=== PATIENT | female | born 1960 | race Caucasian/White ===

== ENCOUNTER 2016-05-08 11:04 | Emergency (ER) | payer MEDICAID ==
[~2016-05-08] VITALS: Ht 162.6 cm; Wt 79.0 kg
[~2016-05-08 11:04] MED LIST: ULTR50TA PO
[2016-05-08 11:39] VITALS: PULSE 77; RESP 16; TEMP 98.1; O2SAT 99
[2016-05-08] MEDS ORDERED: VIST50CA PO (12:07)
--- NOTE | 2016-05-08 12:07 | PD ---
HPI . Lesion in her scalp Chief Complaint: Skin Problem Time Seen by Provider: 11:59 Travel History International Travel<30 days: No Contact w/Intl Traveler<30days: No Traveled to known affect area: No History of Present Illness HPI Patient presents complaining with a lesion on her scalp which has been there since 1995. She has been followed by automotive parts specialist for same. She states that the automotive parts specialist most recently prescribed medication that caused over $300. She was unable to get it filled. She states that the automotive parts specialist is interested in doing a biopsy. It is unclear to me exactly what brought her to the emergency department for this problem today. PFSH Past Medical History Anemia: Yes (BORDERLINE ) Autoimmune Disease: Yes (FIBROMYALGIA, BULEMIA 1992, TMJ ) Heart Rhythm Problems: Yes (IRREGULARITY) High Cholesterol: Yes Diabetes: No Diminished Hearing: No Gastrointestinal Disorders: Yes (DIGESTIVE PROBLEMS-CELIAC VS DIVERTICULITIS?) Musculoskeletal: Yes ( FASCIITIS BOTH FEET;SCIATICA, " back problmes ") Integumentary: Yes (SORES ON SCALP) Immunizations Current: No Migraines: Yes Menopausal: Yes : 0 Para: 1 : 1 Past Surgical History Abdominal Surgery: Yes (ABD LIPOSUCTION 2000) Oral Surgery: Yes (ORAL SURG DUE TO DENTAL ABSCESSES X 3-4 TIMES.) Other Surgery: Yes (LIPOSUCTION ./SINUS SURG.2012) Social History Alcohol Use: No Tobacco Use: No (Q"QUIT YEARS AGO") Substance Use: No Allergies-Medications (Allergen,Severity, Reaction): Coded Allergies: No Known Allergies (Verified , 05/08/16) Reported Meds & Prescriptions Reported Meds & Active Scripts Active Ultram (Tramadol HCl) 50 Mg Tab 50 Mg PO Q4H PRN Review of Systems Except as stated in HPI: all other systems reviewed are Neg Skin: Positive Lesions Physical Exam Narrative GENERAL: Awake and alert and in no acute distress. SKIN: Warm and dry. I cannot appreciate any lesions in her scalp. There is no redness or warmth. There is no induration. There is no rash. CARDIOVASCULAR: Regular rate and rhythm. RESPIRATORY: No accessory muscle use. MUSCULOSKELETAL: No obvious deformities. No edema. NEUROLOGICAL: Awake and alert. No obvious cranial nerve deficits. Motor grossly within normal limits. Normal speech. PSYCHIATRIC: Appropriate mood and affect; insight and judgment normal. Data Data Last Documented VS Vital Signs Date Time Temp Pulse Resp B/P Pulse Ox O2 Delivery O2 Flow Rate FiO2 05/08/16 11:39 98.1 77 16 99 MDM Medical Decision Making Medical Screen Exam Complete: Yes Emergency Medical Condition: Yes Differential Diagnosis The differential diagnosis of the skin rash includes but is not limited to allergic urticaria, scabies, insect bites, contact dermatitis Narrative Course Patient presents for evaluation of a skin problem which she has had for over 20 years. Her exam is benign. Diagnosis Primary Impression: Skin lesion Additional Instructions: Follow-up with the automotive parts specialist Med/Other Pt SpecificInfo: Prescription(s) given Scripts Hydroxyzine Pamoate (Vistaril)50 Mg Cap50 Mg PO QID PRN (skin discomfort) #30 CAP Ref 0 Prov:Puja Do MD 05/08/16 Disposition: 01 DISCHARGE HOME Condition: Stable Puja Do MD May 08, 2016 12:07
== END 2016-05-08 12:19 | disposition home or self-care (01) ==
LOC: PHEFT 11:04
DX: L98.9 Disorder of the skin and subcutaneous tissue, unspecified (principal)
CPT/HCPCS: 99283

== ENCOUNTER 2016-08-25 17:13 | Emergency (ER) | payer MEDICAID ==
[~2016-08-25] VITALS: Ht 162.6 cm; Wt 81.0 kg
[~2016-08-25 17:13] MED LIST changes: +VIST50CA PO
[2016-08-25 17:18] VITALS: BP 133/76; PULSE 97; RESP 16; TEMP 97.9; O2SAT 97
--- NOTE | 2016-08-25 18:14 | PD ---
HPI Chief Complaint: Musculoskeletal Complaint Time Seen by Provider: 17:50 Travel History International Travel<30 days: No Contact w/Intl Traveler<30days: No Traveled to known affect area: No History of Present Illness HPI 56-year-old female presents to the emergency room for evaluation of chronic right upper arm pain. Patient has had arm pain for 5 years but states it occasionally flares. It started flaring this morning. Condition is in the process of getting diagnosed with a blood disorder. She had an appointment with her special agent oncologist 2 days ago and a follow-up appointment with her primary care physician yesterday. The heme/onc ordered a PET scan for next month. Her primary care physician wrote her a prescription for Medrol Dosepak which she has yet to pickler helper. Patient states her pain can become severely limiting her ability to perform daily activities. Worse with range of motion. She has been taking Tylenol and ibuprofen without significant relief in symptoms. She denies paresthesias. When asked what brings her into the emergency room today for this chronic condition, patient states her mother needed to be seen for another complaint so she decided to have her arm evaluated. When asked what it is that we can do for her, patient requested an Jaylan wrap. PFSH Past Medical History Anemia: Yes (BORDERLINE ) Autoimmune Disease: Yes (FIBROMYALGIA, BULEMIA 1992, TMJ ) Heart Rhythm Problems: Yes (IRREGULARITY) High Cholesterol: Yes Diabetes: No Diminished Hearing: No Gastrointestinal Disorders: Yes (DIGESTIVE PROBLEMS-CELIAC VS DIVERTICULITIS?) Musculoskeletal: Yes ( FASCIITIS BOTH FEET;SCIATICA, " back problmes ") Integumentary: Yes (SORES ON SCALP) Immunizations Current: No Migraines: Yes ?: Not Menopausal: Yes : 0 Para: 1 : 1 Past Surgical History Abdominal Surgery: Yes (ABD LIPOSUCTION 2000) Oral Surgery: Yes (ORAL SURG DUE TO DENTAL ABSCESSES X 3-4 TIMES.) Other Surgery: Yes (LIPOSUCTION ./SINUS SURG.2012) Social History Alcohol Use: No Tobacco Use: No (Q"QUIT YEARS AGO") Substance Use: No Allergies-Medications (Allergen,Severity, Reaction): Coded Allergies: No Known Allergies (Verified , 08/25/16) Reported Meds & Prescriptions Reported Meds & Active Scripts Active No Active Prescriptions or Reported Medications Review of Systems Except as stated in HPI: all other systems reviewed are Neg Physical Exam Narrative GENERAL: Well-developed, well-nourished female in no acute distress. Afebrile. Ambulatory. SKIN: Focused skin assessment warm/dry. No erythema or ecchymosis. HEAD: Atraumatic. Normocephalic. EYES: Pupils equal and round. No scleral icterus. No injection or drainage. NECK: Trachea midline. No JVD. CARDIOVASCULAR: Regular rate and rhythm. No murmur appreciated. RESPIRATORY: No accessory muscle use. Clear to auscultation. Breath sounds equal bilaterally. MUSCULOSKELETAL: No obvious deformities. No clubbing. No cyanosis. No edema. 2+ radial pulse. Radial, ulnar, and median nerves intact. Limited range of motion secondary to pain. No specific bony tenderness to palpation. NEUROLOGICAL: Awake and alert. No obvious cranial nerve deficits. Motor grossly within normal limits. Normal speech. PSYCHIATRIC: Appropriate mood and affect; insight and judgment normal. Data Data Last Documented VS Vital Signs Date Time Temp Pulse Resp B/P Pulse Ox O2 Delivery O2 Flow Rate FiO2 08/25/16 17:18 97.9 97 16 133/76 97 MDM Medical Decision Making Medical Screen Exam Complete: Yes Emergency Medical Condition: Yes Medical Record Reviewed: Yes Differential Diagnosis Chronic pain, blood disorder, sprain, tendinitis Narrative Course 56-year-old female presents to the emergency room for evaluation of chronic upper arm pain that flared up this morning. Patient states she came because her mom needed to be seen too. Right upper extremity is neurovascularly intact with 2+ radial pulse and radial, ulnar, and median nerves intact. Patient has a primary care physician and is currently being treated for her condition with referrals to orthopedic surgeons and special agent/oncologist. When asked what she needs today, she requested an Jaylan wrap. Patient was placed in an Jaylan wrap and told to continue taking Tylenol, Motrin for pain. Told to continue seeing her specialists for this and follow up with her primary care physician as needed. She understands and agrees to plan. Diagnosis Primary Impression: Right upper limb pain Referrals: Primary Care Physician Patient Instructions: Arm Pain (ED), General Instructions Additional Instructions: Rest and drink plenty of fluids. Use splint as needed. Take ibuprofen with food as directed, as needed for pain. Apply ice to the affected area for 20 minutes at a time, as needed for pain and swelling. Follow-up with a primary care physician. Return to the emergency room for worsening symptoms. Scripts No Active Prescriptions or Reported Meds Disposition: 01 DISCHARGE HOME Condition: Stable Erna Kruse Aug 25, 2016 18:14
== END 2016-08-25 18:26 | disposition home or self-care (01) ==
LOC: PHEFT 17:13
DX: M79.601 Pain in right arm (principal); D64.9 Anemia, unspecified; M79.7 Fibromyalgia; E78.00 Pure hypercholesterolemia, unspecified; Z87.891 Personal history of nicotine dependence
CPT/HCPCS: 99282

== ENCOUNTER 2016-09-03 12:00 | Emergency (ER) | payer MEDICAID ==
[~2016-09-03] VITALS: Ht 162.6 cm; Wt 80.0 kg
[2016-09-03 12:14] VITALS: BP 126/81; PULSE 85; RESP 16; TEMP 98.2; O2SAT 98
[2016-09-03] MEDS ORDERED: hydrOXYzine HCL 50 MG TAB PO ONE (12:45)
[2016-09-03] MEDS ORDERED: HYDR50TA94 PO (12:53)
--- NOTE | 2016-09-03 12:54 | PD ---
HPI . Facial vibrations Chief Complaint: Facial Pain or Swelling Time Seen by Provider: 12:42 Travel History International Travel<30 days: No Contact w/Intl Traveler<30days: No Traveled to known affect area: No History of Present Illness HPI The patient presents with the chief complaint of facial vibrations. It started last night. She states that it moves across her forehead. She states that she feels like she has a bee in her right ear. Planes of a left-sided headache which started today. She states that she took Aleve and use ice with no relief. She states that her left eye is watering. She describes her discomfort as 8/10 but only wants something mild for it. The discomfort is described as a vibration. PFSH Past Medical History Anemia: Yes (BORDERLINE ) Autoimmune Disease: Yes (FIBROMYALGIA, BULEMIA 1992, TMJ ) Heart Rhythm Problems: Yes (IRREGULARITY) High Cholesterol: Yes Diabetes: No Diminished Hearing: No Gastrointestinal Disorders: Yes (DIGESTIVE PROBLEMS-CELIAC VS DIVERTICULITIS?) Musculoskeletal: Yes ( FASCIITIS BOTH FEET;SCIATICA, " back problmes " ( " lots of musculoskeleta) Integumentary: Yes (SORES ON SCALP) Immunizations Current: No Migraines: Yes Tetanus Vaccination: Unknown Influenza Vaccination: No ?: Not Menopausal: Yes : 0 Para: 1 : 1 Past Surgical History Abdominal Surgery: Yes (ABD LIPOSUCTION 2000) Oral Surgery: Yes (ORAL SURG DUE TO DENTAL ABSCESSES X 3-4 TIMES.) Other Surgery: Yes (LIPOSUCTION ./SINUS SURG.2012) Social History Alcohol Use: No Tobacco Use: No (Q"QUIT YEARS AGO") Substance Use: No Allergies-Medications (Allergen,Severity, Reaction): Coded Allergies: No Known Allergies (Verified , 09/03/16) Reported Meds & Prescriptions Reported Meds & Active Scripts Active No Active Prescriptions or Reported Medications Review of Systems Except as stated in HPI: all other systems reviewed are Neg General / Constitutional: No: Fever, Chills Eyes: Positive: Tearing, No: Diploplia, Blurred Vision HENT: Positive: Headaches Neurologic: Positive: Paresthesia, No: Weakness, Dizziness, Syncope, Focal Abnormalities Physical Exam Narrative GENERAL: Patient is awake and alert and in no acute distress. SKIN: Warm and dry. HEAD: Atraumatic. Normocephalic. EYES: Pupils equal and round. Extraocular movements are intact. ENT: No nasal bleeding or discharge. Mucous membranes pink and moist. NECK: Trachea midline. Neck is supple. CARDIOVASCULAR: Regular rate and rhythm. Heart sounds are normal. RESPIRATORY: No accessory muscle use. Lungs are clear with full air movement throughout. GASTROINTESTINAL: Abdomen soft, non-tender, nondistended. MUSCULOSKELETAL: No obvious deformities. No edema. NEUROLOGICAL: Awake and alert. No obvious cranial nerve deficits. Motor grossly within normal limits. Normal speech. Normal [id number] exam. PSYCHIATRIC: Appropriate mood and affect; insight and judgment normal. Data Data Last Documented VS Vital Signs Date Time Temp Pulse Resp B/P Pulse Ox O2 Delivery O2 Flow Rate FiO2 09/03/16 12:14 98.2 85 16 126/81 98 Orders Hydroxyzine Hcl (Atarax) (09/03/16 12:45) [facility] Medical Decision Making Medical Screen Exam Complete: Yes Emergency Medical Condition: Yes Differential Diagnosis My differential diagnosis of paresthesias includes but is not limited to anxiety , radiculopathy, peripheral neuropathy, peripheral vascular disease, compartment syndrome Narrative Course This patient presents with headache and paresthesias in her face. She has a normal examination. She is requesting something "mild" for her symptoms. I have given her a dose of oral Vistaril. Emergency Department evaluation reveals no emergency medical condition. The patient is stable for discharge to home. Diagnosis Primary Impression: Paresthesia Additional Impression: Headache Qualified Code: R51 - Acute nonintractable headache, unspecified headache type Referrals: Primary Care Physician Patient Instructions: Acute Headache (DC), General Instructions, Paresthesia ( ED) Additional Instructions: See your doctor if symptoms persist Scripts Hydroxyzine HCl 50 Mg Tab50 Mg PO QID PRN (unusual sensations) #30 TAB Ref 0 Prov:Puja Do MD 09/03/16 Disposition: 01 DISCHARGE HOME Condition: Stable Puja Do MD Sep 03, 2016 12:54
== END 2016-09-03 13:23 | disposition home or self-care (01) ==
LOC: PHED 12:00
DX: R20.2 Paresthesia of skin (principal); R51 Headache; E78.00 Pure hypercholesterolemia, unspecified; Z86.2 Personal history of diseases of the blood and blood-forming organs and certain disorders involving the immune mechanism; Z87.39 Personal history of other diseases of the musculoskeletal system and connective tissue; Z86.79 Personal history of other diseases of the circulatory system; Z87.19 Personal history of other diseases of the digestive system
CPT/HCPCS: 99283

== ENCOUNTER 2017-03-27 18:00 | Emergency (ER) | payer MEDICAID ==
[~2017-03-27] VITALS: Ht 162.6 cm; Wt 83.0 kg
[~2017-03-27 18:00] MED LIST changes: +HYDR50TA94 PO; -ULTR50TA PO; -VIST50CA PO
[2017-03-27 18:10] VITALS: BP 117/67; PULSE 86; RESP 16; TEMP 98; O2SAT 97
[2017-03-27] MEDS ORDERED: ALEV220T14 PO (18:23)
--- NOTE | 2017-03-27 18:40 | PD ---
HPI Chief Complaint: Musculoskeletal Complaint Time Seen by Provider: 18:31 Travel History International Travel<30 days: No Contact w/Intl Traveler<30days: No Traveled to known affect area: No History of Present Illness HPI 57-year-old female presents to the ED for evaluation of 20+ year history of bilateral knee pain. She can identify no acute injury. She denies numbness, tingling, weakness, limitations to range of motion of the knees. She endorses giving way but states that she's never fallen. She denies worsening of her normal symptoms. She states that she's been taking 220 mg of Aleve every day or every other day with no improvement of her symptoms. She states that she feels like she could take some more medications. The patient states that she's had MRIs performed of both knees which revealed synovitis, loose bodies meniscal tears. She states that she saw an orthopedist in the past but "he wouldn't touch me." She has also seen the oncologist multiple times. She does not currently have a primary care provider. PFSH Past Medical History Anemia: Yes (BORDERLINE ) Autoimmune Disease: Yes (FIBROMYALGIA, BULEMIA 1992, TMJ ) Heart Rhythm Problems: Yes (IRREGULARITY) High Cholesterol: Yes Diabetes: No Diminished Hearing: No Gastrointestinal Disorders: Yes (DIGESTIVE PROBLEMS-CELIAC VS DIVERTICULITIS?) Musculoskeletal: Yes ( FASCIITIS BOTH FEET;SCIATICA, " back problmes " ( " lots of musculoskeleta) Integumentary: Yes (SORES ON SCALP) Immunizations Current: No Migraines: Yes ?: Not Menopausal: Yes : 0 Para: 1 : 1 Past Surgical History Abdominal Surgery: Yes (ABD LIPOSUCTION 2000) Oral Surgery: Yes (ORAL SURG DUE TO DENTAL ABSCESSES X 3-4 TIMES.) Other Surgery: Yes (LIPOSUCTION ./SINUS SURG.2012) Social History Alcohol Use: No Tobacco Use: No (Q"QUIT YEARS AGO") Substance Use: No Allergies-Medications (Allergen,Severity, Reaction): Coded Allergies: No Known Allergies (Verified Adverse Reaction, Unknown, 03/27/17) Reported Meds & Prescriptions Reported Meds & Active Scripts Active Naproxen 500 Mg Tab 500 Mg PO BID 5 Days Reported Aleve Arthritis (Naproxen Sodium) 220 Mg Tab 220 Mg PO BID Review of Systems Except as stated in HPI: all other systems reviewed are Neg Physical Exam Narrative GENERAL: Obese white female in no acute distress. SKIN: Focused skin assessment warm/dry. HEAD: Normocephalic. EYES: No scleral icterus. No injection or drainage. NECK: Supple, trachea midline. No JVD or lymphadenopathy. CARDIOVASCULAR: Regular rate and rhythm without murmurs, gallops, or rubs. RESPIRATORY: Breath sounds equal bilaterally. No accessory muscle use. GASTROINTESTINAL: Abdomen soft, non-tender, nondistended. MUSCULOSKELETAL: No cyanosis, or edema. 2+ DP pulses bilaterally. No tenderness to palpation of the knees bilaterally. No patellar balloting bilaterally. Negative varus, valgus stress testing bilaterally. 5/5 strength of dorsiflexion, plantar flexion bilaterally. Patient is able to flex the knee beyond 90 and extend beyond 0 bilaterally. Neurovascular intact to light touch distally bilaterally. BACK: Nontender without obvious deformity. No CVA tenderness. Data Data Last Documented VS Vital Signs Date Time Temp Pulse Resp B/P (MAP) Pulse Ox O2 Delivery O2 Flow Rate FiO2 03/27/17 18:10 98.0 86 16 117/67 (84) 97 Orders Orders Ketorolac Inj (Toradol Inj) (03/27/17 19:00) MDM Medical Decision Making Medical Screen Exam Complete: Yes Emergency Medical Condition: Yes Differential Diagnosis Anxiety versus chronic knee pain versus acute on chronic knee pain versus depression versus other Narrative Course 57-year-old female presents to the ED for evaluation of 20+ year history of bilateral knee pain. She can identify no acute injury. She endorses giving way but states that she's never fallen. She denies worsening of her normal symptoms. She states that she's been taking 220 mg of Aleve every day or every other day with no improvement of her symptoms. She states that she feels like she could take some more medications. The patient states that she's had MRIs performed of both knees which revealed synovitis, loose bodies meniscal tears. She states that she saw an orthopedist in the past but "he wouldn't touch me." She has also seen the oncologist multiple times. She does not currently have a primary care provider. Vitals reviewed. On exam patient's very tangential. Is difficult to draw from her the reason while she is here today. I mentioned that I read the oncologist previous note the patient was very anxious about this , questioning multiple times as to why I would read that note. I explained to her that I was trying to understand his history of her problem in an effort to treat her. Ultimately I am unsure why the patient is here, likely seeking some reassurance. According to other notes the patient has seen multiple specialists for her problem, but has never been compliant with the recommended treatment. She is administered 30 mg of Toradol IM. She is prescribed a short course of Aleve. She states that she has followed up with the living specialist later this month and I recommended that she see that physician as planned. She is stable and discharged home. Diagnosis Primary Impression: Chronic knee pain Qualified Codes: M25.561 - Pain in right knee; M25.562 - Pain in left knee; G89.29 - Other chronic pain Referrals: Orthopedist Primary Care Physician Patient Instructions: General Instructions, Knee Pain (ED) Additional Instructions: Rest, hydrate. Take Aleve as prescribed BEGINNING TOMORROW. Return to normal, gentle activity as tolerated. Follow-up with the primary care provider and living specialist as planned. Return to the ED for worsening symptoms or any urgent or emergent medical condition. Med/Other Pt SpecificInfo: Prescription(s) given Scripts Naproxen (Naproxen) 500 Mg Tab 500 MG PO BID for 5 Days, #10 TAB 0 Refills Prov: Ramandeep Hester MD 03/27/17 Disposition: 01 DISCHARGE HOME Condition: Stable Raegan Flanagan Mar 27, 2017 18:40
[2017-03-27] MEDS ORDERED: KETOROLAC TROMETHAMINE 60 MG/2 ML (IM) VIAL IM ONE (19:00)
[2017-03-27] MEDS ORDERED: NAPR500T2 PO (19:29)
== END 2017-03-27 19:51 | disposition home or self-care (01) ==
LOC: PHEFT 18:00
DX: M25.561 Pain in right knee (principal); M25.562 Pain in left knee; G89.29 Other chronic pain
CPT/HCPCS: 96372; 99284; J1885

== ENCOUNTER 2017-04-19 17:03 | Emergency (ER) | payer MEDICAID ==
[~2017-04-19] VITALS: Ht 162.6 cm; Wt 81.0 kg
[~2017-04-19 17:03] MED LIST changes: +ALEV220T14 PO; -HYDR50TA94 PO; +NAPR500T2 PO
[2017-04-19 17:06] VITALS: BP 111/75; PULSE 92; RESP 18; TEMP 97.5; O2SAT 99
[2017-04-19 17:57] VITALS: BP 125/60; PULSE 65; RESP 16; O2SAT 100
--- NOTE | 2017-04-19 18:16 | PD ---
HPI Chief Complaint: Edema Time Seen by Provider: 17:34 Travel History International Travel<30 days: No Contact w/Intl Traveler<30days: No Traveled to known affect area: No History of Present Illness HPI 57 year old female sent to ED by new primary care physician today for possible evaluation of DVT on right leg. The patient has an extensive history with chronic leg and joint pain and swelling and states she is currently being worked up for RA. She has recently started to have "spasms" in her right ankle which spread down her foot which began 4 days prior. Today she was in her primary care office who wanted her to come to ED for an US to rule out DVT. She denies any history of DVT, chest pain, SOB, fevers or any other symptoms. Risk Factors:[None] Modifying Factors:[None] Associated sign and symptoms: Right leg "spams", no chest pain, no SOB PFSH Past Medical History Anemia: Yes (BORDERLINE ) Autoimmune Disease: Yes (FIBROMYALGIA, BULEMIA 1992, TMJ ) Heart Rhythm Problems: Yes (IRREGULARITY) High Cholesterol: Yes Diabetes: No Diminished Hearing: No Gastrointestinal Disorders: Yes (DIGESTIVE PROBLEMS-CELIAC VS DIVERTICULITIS?) Musculoskeletal: Yes ( FASCIITIS BOTH FEET;SCIATICA, " back problmes " ( " lots of musculoskeleta) Integumentary: Yes (SORES ON SCALP) Immunizations Current: No Migraines: Yes Tetanus Vaccination: > 5 Years Influenza Vaccination: No ?: Not LMP: MENOPAUSAL Menopausal: Yes : 0 Para: 1 : 1 Past Surgical History Abdominal Surgery: Yes (ABD LIPOSUCTION 2000) Oral Surgery: Yes (ORAL SURG DUE TO DENTAL ABSCESSES X 3-4 TIMES.) Other Surgery: Yes (LIPOSUCTION ./SINUS SURG.2012) Social History Alcohol Use: No Tobacco Use: No ("QUIT YEARS AGO") Substance Use: No Allergies-Medications (Allergen,Severity, Reaction): Coded Allergies: No Known Allergies (Verified Adverse Reaction, Unknown, 04/19/17) Reported Meds & Prescriptions Reported Meds & Active Scripts Active No Active Prescriptions or Reported Medications Review of Systems Except as stated in HPI: all other systems reviewed are Neg Physical Exam Narrative GENERAL: Well developed women in ED stretcher, no acute distress, appears stated age. SKIN: Warm and dry. HEAD: Atraumatic. Normocephalic. EYES: Pupils equal and round. No scleral icterus. No injection or drainage. ENT: No nasal bleeding or discharge. Mucous membranes pink and moist. NECK: Trachea midline. No JVD. CARDIOVASCULAR: Regular rate and rhythm. RESPIRATORY: No accessory muscle use. Clear to auscultation. Breath sounds equal bilaterally. GASTROINTESTINAL: Abdomen soft, non-tender, nondistended. Hepatic and splenic margins not palpable. MUSCULOSKELETAL: Extremities with non pitting edema, equal bilaterally. Negative homans sign, no calf tenderness, no warmth to touch, no erythema. Slight TTP to right ankle, ROM intact, pulses equal bilateral. NEUROLOGICAL: Awake and alert. No obvious cranial nerve deficits. Motor grossly within normal limits. Five out of 5 muscle strength in the arms and legs. Normal speech. PSYCHIATRIC: Appropriate mood and affect; insight and judgment normal. Data Data Last Documented VS Vital Signs Date Time Temp Pulse Resp B/P (MAP) Pulse Ox O2 Delivery O2 Flow Rate FiO2 04/19/17 17:57 65 16 125/60 (81) 100 Room Air 04/19/17 17:06 97.5 Orders Orders Us Leg Venous Doppler (04/19/17 17:34) Ankle, Limited (Ap&Lat) (04/19/17 18:08) Basic Metabolic Panel (Bmp) (04/19/17 18:08) Prothrombin Time / Inr (Pt) (04/19/17 18:08) Act Partial Throm Time (Ptt) (04/19/17 18:08) Labs Laboratory Tests Test 04/19/17 18:45 Prothrombin Time 10.2 SEC Prothromb Time International Ratio 1.0 RATIO Activated Partial Thromboplast Time 30.6 SEC Blood Urea Nitrogen 17 MG/DL Creatinine 0.79 MG/DL Random Glucose 87 MG/DL Calcium Level 8.9 MG/DL Sodium Level 140 MEQ/L Potassium Level 4.0 MEQ/L Chloride Level 107 MEQ/L Carbon Dioxide Level 26.8 MEQ/L Anion Gap 6 MEQ/L Estimat Glomerular Filtration Rate 76 ML/MIN [facility] Medical Decision Making Medical Screen Exam Complete: Yes Emergency Medical Condition: Yes Medical Record Reviewed: Yes Interpretation(s) Laboratory Tests Test 04/19/17 18:45 Activated Partial Thromboplast Time 30.6 SEC (24.3-30.1) Estimat Glomerular Filtration Rate 76 ML/MIN (>89) Differential Diagnosis Occult fracture versus strain versus dependent edema versus restless leg syndrome versus DVT versus electrolyte abnormalities/muscle spasms Narrative Course Lab work did not show any signs of electrolyte abnormalities. X-ray did not show any signs of underlying fractures or other acute processes. Ultrasound was negative for DVT. At this point, my plan would be to release the patient with follow-up to primary care physician regarding ongoing pain. Return for any worsening in symptoms as necessary. The plan has been discussed with her and she states understanding. Diagnosis Primary Impression: Right ankle pain Scripts No Active Prescriptions or Reported Meds Disposition: 01 DISCHARGE HOME Condition: Stable Ramandeep Hester MD Apr 19, 2017 18:16
--- NOTE | 2017-04-19 18:35 | RADRPT ---
EXAM DATE/TIME: 04/19/2017 18:10 [facility] COMPARISON: No previous studies available for comparison. INDICATIONS : Right leg pain and swelling. MEDICAL HISTORY : Hypothyroidism. Hypercholesterolemia. Anemia. SURGICAL HISTORY : Liposuction. ENCOUNTER: Initial ACUITY: 1 week PAIN SCORE: 5/10 LOCATION: Right leg. TECHNIQUE: Venous ultrasound of the leg was performed from the inguinal ligament to the proximal calf. Real-kelsey e, color Doppler and spectral tracing, compression and augmentation techniques were used. FINDINGS: There is normal compressibility of the deep venous system from the inguinal region to the proximal ca lf. No echogenic clot is seen in the lumen of the common femoral, femoral, popliteal, and posterior tibial veins. There is a normal response of the venous system to proximal and distal augmentation an d respiration. CONCLUSION: Normal examination. Henry Vargas MD on April 19, 2017 at 18:32 Board Certified Radiologist. This report was verified electronically.
--- NOTE | 2017-04-19 18:39 | RADRPT ---
EXAM DATE/TIME: 04/19/2017 18:23 [facility] COMPARISON: No previous studies available for comparison. INDICATIONS : Right ankle swelling. MEDICAL HISTORY : Hypercholesterolemia. Hypothyroidism. Osteoporosis. Fibromyalgia. SURGICAL HISTORY : None. ENCOUNTER: Initial ACUITY: 1 week PAIN SCORE: 0/10 LOCATION: Right ankle. FINDINGS: There is diffuse soft tissue swelling around the ankle. The bony structures are grossly intact. No ac kojo fracture or joint dislocation is demonstrated. There is good alignment the mortise joint. No fore ign bodies are demonstrated. CONCLUSION: Diffuse nonspecific soft tissue swelling. Yossi Menjivar MD on April 19, 2017 at 18:36 Board Certified Radiologist. This report was verified electronically.
[2017-04-19 19:03] LABS: CALCIUM 8.9 MG/DL (8.5-10.1)
[2017-04-19 19:04] LABS: BICARBONATE 26.8 MEQ/L (21.0-32.0)
[2017-04-19 19:06] LABS: PROTHROMBIN TIME - PATIENT 10.2 SEC (9.8-11.6)
[2017-04-19 19:07] LABS: CREATININE 0.79 MG/DL (0.50-1.00)
[2017-04-19 19:44] VITALS: BP 104/60; PULSE 69; RESP 16; O2SAT 99
== END 2017-04-19 19:49 | disposition home or self-care (01) ==
LOC: PHED 17:03
DX: M25.571 Pain in right ankle and joints of right foot (principal); M79.7 Fibromyalgia; E78.00 Pure hypercholesterolemia, unspecified
CPT/HCPCS: 73600; 80048; 85610; 85730; 93971; 99285

== ENCOUNTER 2017-05-09 14:16 | Emergency (ER) | payer MEDICAID ==
[~2017-05-09] VITALS: Ht 162.6 cm; Wt 80.0 kg
[2017-05-09 14:20] VITALS: BP 118/58; PULSE 80; RESP 16; TEMP 98.4; O2SAT 99
--- NOTE | 2017-05-09 15:03 | PD ---
HPI Chief Complaint: Skin Problem Time Seen by Provider: 14:42 Travel History International Travel<30 days: No Contact w/Intl Traveler<30days: No Traveled to known affect area: No History of Present Illness HPI She comes into the the emergency department complaining of a noted rash on her back. This rash is red and gives her a burning type sensation. While she is here she also is complaining of a left sided flank pain that radiated towards her left groin area, and has been ongoing and sharp in 7-8 out of 10 on the scale intermittently. The patient sealed that this was all happening because of her taking steroids so she stopped taking her steroids and folic acid that she was prescribed for her rheumatoid arthritis. The patient presently refuses to and does not want to restart her medications. Patient presently denies any associated factors such as fever, neck stiffness, chest pain, abdominal pain, cough, runny nose, sore throat. Patient denies any alleviating or aggravating factors Cannot recall the primary care doc who is a new one Patient has no known drug allergies Past medical and surgical history significant for angina hypercholesterolemia GERD diverticulitis celiac disease fibromyalgia hypothyroidism and rheumatoid arthritis. PFSH Past Medical History Anemia: Yes (BORDERLINE ) Autoimmune Disease: Yes (FIBROMYALGIA, BULEMIA 1992, TMJ ) Heart Rhythm Problems: Yes (IRREGULARITY) High Cholesterol: Yes Diabetes: No Diminished Hearing: No Gastrointestinal Disorders: Yes (DIGESTIVE PROBLEMS-CELIAC VS DIVERTICULITIS?) Musculoskeletal: Yes ( FASCIITIS BOTH FEET;SCIATICA, " back problmes " ( " lots of musculoskeleta) Integumentary: Yes (SORES ON SCALP) Immunizations Current: No Migraines: Yes Tetanus Vaccination: Unknown ?: Not LMP: Rocio- Menopausal: Yes : 0 Para: 1 : 1 Past Surgical History Abdominal Surgery: Yes (ABD LIPOSUCTION 2000) Oral Surgery: Yes (ORAL SURG DUE TO DENTAL ABSCESSES X 3-4 TIMES.) Other Surgery: Yes (LIPOSUCTION ./SINUS SURG.2012) Social History Alcohol Use: No Tobacco Use: No ("QUIT YEARS AGO") Substance Use: No Allergies-Medications (Allergen,Severity, Reaction): Coded Allergies: No Known Allergies (Verified Adverse Reaction, Unknown, 04/19/17) Reported Meds & Prescriptions Reported Meds & Active Scripts Active No Active Prescriptions or Reported Medications Review of Systems General / Constitutional: No: Fever Eyes: No: Visual changes HENT: No: Headaches Cardiovascular: No: Chest Pain or Discomfort Respiratory: No: Shortness of Breath Gastrointestinal: No: Abdominal Pain Genitourinary: Positive: Flank Pain Musculoskeletal: No: Pain Skin: Positive Rash Neurologic: No: Weakness Psychiatric: No: Depression Endocrine: No: Polydipsia Hematologic/Lymphatic: No: Easy Bruising Physical Exam Narrative GENERAL: SKIN: Warm and dry. Left low posterior back area over the iliac crest there is a maculopapular region with satellite lesions consistent with clear vesicular lesions consistent with zoster HEAD: Atraumatic. Normocephalic. EYES: Pupils equal and round. No scleral icterus. No injection or drainage. ENT: No nasal bleeding or discharge. Mucous membranes pink and moist. NECK: Trachea midline. No JVD. CARDIOVASCULAR: Regular rate and rhythm. RESPIRATORY: No accessory muscle use. Clear to auscultation. Breath sounds equal bilaterally. GASTROINTESTINAL: Abdomen soft, non-tender, nondistended. MUSCULOSKELETAL: Extremities without clubbing, cyanosis, or edema. No obvious deformities. NEUROLOGICAL: Awake and alert. No obvious cranial nerve deficits. Motor grossly within normal limits. Five out of 5 muscle strength in the arms and legs. Normal speech. PSYCHIATRIC: Appropriate mood and affect; insight and judgment normal. Data Data Last Documented VS Vital Signs Date Time Temp Pulse Resp B/P (MAP) Pulse Ox O2 Delivery O2 Flow Rate FiO2 05/09/17 14:20 98.4 80 16 118/58 (78) 99 Orders Orders Urinalysis - C+S If Indicated (05/09/17 14:55) Ct Abd/Pel W/O Iv Contrast (05/09/17 14:55) Urine Culture (05/09/17 15:00) Labs Laboratory Tests Test 05/09/17 15:00 Urine Color YELLOW Urine Turbidity CLEAR Urine pH 5.5 Urine Specific [place] 1.015 Urine Protein NEG mg/dL Urine Glucose (UA) NEG mg/dL Urine Ketones NEG mg/dL Urine Occult Blood NEG Urine Nitrite NEG Urine Bilirubin NEG Urine Leukocyte Esterase NEG Urine WBC 6-8 /hpf Urine WBC Clumps FEW Urine Squamous Epithelial Cells 0-5 /hpf Microscopic Urinalysis Comment CULTURE INDICATED MDM Medical Decision Making Medical Screen Exam Complete: Yes Emergency Medical Condition: Yes Medical Record Reviewed: Yes Differential Diagnosis Cellulitis versus zoster versus kidney stones versus pyelonephritis versus colitis versus diverticulitis Narrative Course UA shows positive urine WBCs noted in clumps. A culture is indicated. CT abdomen pelvis is negative for any kidney stone, pyelonephritis, or abscess of kidney. Diagnosis Primary Impression: UTI Additional Impression: Zoster Qualified Codes: B02.9 - Zoster without complications Patient Instructions: General Instructions, Shingles (ED), Urinary Tract Infection in Women (DC) Scripts Codeine-Acetaminophen (Codeine-Acetaminophen) 30-300 mg Tab 1 TAB PO Q4H Y for PAIN, #15 TAB 0 Refills Prov: Bar Mcgraw MD 05/09/17 Valacyclovir (Valtrex) 1,000 Mg Tab 1000 MG PO BID for Mgmt Viral Infection for 10 Days, #20 TAB 0 Refills Prov: Bar Mcgraw MD 05/09/17 Nitrofurantoin Monohydrate Macrocrystals (Macrobid) 100 Mg Capsule 100 MG PO BID for Infection for 7 Days, #14 CAP 0 Refills Prov: Bar Mcgraw MD 05/09/17 Disposition: 01 DISCHARGE HOME Condition: Stable Bar Mcgraw MD May 09, 2017 15:03
[2017-05-09 15:21] LABS: BILIRUBIN, URINE NEG (NEG); BLOOD, URINE NEG (NEG); GLUCOSE,URINE NEG (NEG); KETONE, URINE NEG (NEG); NITRITE,URINE NEG (NEG); PH, URINE 5.5 (5.0-8.5); URINE LEUKOCYTE ESTERASE NEG (NEG)
[2017-05-09 15:26] LABS: URINE COLOR YELLOW (YELLW/STRAW)
[2017-05-09 15:27] LABS: SQUAMOUS EPITHELIAL CELL URINE 0-5 /hpf (0-5); WHITE BLOOD CELL CLUMPS FEW
--- NOTE | 2017-05-09 16:12 | RADRPT ---
EXAM DATE/TIME: 05/09/2017 15:19 [facility] COMPARISON: No previous studies available for comparison. INDICATIONS : Left lower abdominal pain radiating down back and inguinal area. Evaluate for renal stone. ORAL CONTRAST: No oral contrast ingested. RADIATION DOSE: 16.06 CTDIvol (mGy) MEDICAL HISTORY : Hypercholesterolemia. Hypothyroidism. SURGICAL HISTORY : None. ENCOUNTER: Initial ACUITY: 2 days PAIN SCALE: 7/10 LOCATION: Left flank TECHNIQUE: Volumetric scanning of the abdomen and pelvis was performed. Using automated exposure control and ad justment of the mA and/or kV according to patient size, radiation dose was kept as low as reasonably achievable to obtain optimal diagnostic quality images. DICOM format image data is available electro nically for review and comparison. FINDINGS: LOWER LUNGS: The visualized lower lungs are clear. LIVER: Homogeneous density without lesion. There is no dilation of the biliary tree. No calcified gallston es. SPLEEN: Normal size without lesion. PANCREAS: Within normal limits. KIDNEYS: Normal in size and shape. There is no mass, stone, or hydronephrosis. There are left renal sinus cys ts. Ureters are within normal limits. ADRENAL GLANDS: Within normal limits. VASCULAR: There is no aortic aneurysm. There is mild atherosclerotic disease. BOWEL/MESENTERY: The stomach, small bowel, and colon demonstrate no acute abnormality. There is no free intraperitone al air or fluid. The terminal ileum and appendix are within normal limits. ABDOMINAL WALL: Within normal limits. RETROPERITONEUM: There is no lymphadenopathy. BLADDER: No wall thickening or mass. REPRODUCTIVE: Within normal limits. INGUINAL: There is no lymphadenopathy or hernia. MUSCULOSKELETAL: No acute abnormality is identified. CONCLUSION: No acute finding is identified within the abdomen or pelvis. No renal stones are present. Henry Delcid MD on May 09, 2017 at 16:08 Board Certified Radiologist. This report was verified electronically.
[2017-05-09] MEDS ORDERED: MACR100C2 PO (16:27)
[2017-05-09] MEDS ORDERED: CODE30TA2 PO (16:27)
[2017-05-09] MEDS ORDERED: VALT1TAB PO (16:27)
[2017-05-09 17:08] VITALS: BP 126/70
== END 2017-05-09 17:28 | disposition home or self-care (01) ==
LOC: PHED 14:16
DX: N39.0 Urinary tract infection, site not specified (principal); B02.9 Zoster without complications; M06.9 Rheumatoid arthritis, unspecified
CPT/HCPCS: 74176; 81001; 87086; 99284